=== PATIENT | female | born 1975 | race Caucasian/White ===

== ENCOUNTER 2021-05-28 00:41 | Emergency (ER) | payer OTHER ==
[~2021-05-28] VITALS: Ht 172.7 cm; Wt 65.8 kg
--- NOTE | ~2021-05-28 | EMS ---
[address] [address] EMS Patient Care Report Name: MANSI FAJARDO Room #: DEP IZAIAH Garcia#: [id number] Admission: 05/28/21 Attend Phys: Discharge: 05/28/21 Date of : 77 Report #: [id number] THIS REPORT FOR: //name// Report Transmitted: 05/28/2021 07:33 EMS Care Summary [facility] MED-ACT Incident [id number] @ 05/28/2021 00:02 Incident Location [address] [place] [address] Patient MANSI FAJARDO Female, 45 Years 1975 Patient Address [address] [place] [address] Patient History Asthma,Substance Abuse, Patient Allergies No known allergies, Patient Medications None Reported, Chief Complaint unresposive Disposition Transported No Lights/[place] Dispatch Reason Overdose/Poisoning/Ingestion Transported To [facility] Narrative dispatch: medic [id number] dispatched to a private residence for a report of a pt who had suffered an overdose. medic [id number] immediately responded to the scene without delay. [address] [address] EMS Patient Care Report Name: MANSI FAJARDO HANNAH Room #: DEP DimaDinesh#: [id number] Admission: 05/28/21 Attend Phys: Discharge: 05/28/21 Date of : 77 Report #: [id number] chief complaint: upon arrival to the scene ems enters the residence to find a 45 y/o female pt supine on the floor in the front room of the residence. pt unresponsive with shallow, labored respiration. pt's ex-boyfriend states he believed pt overdosed on heroin. responders from [facility] report finding the pt in an upstairs bathroom and carrying her to the front room. history of present illness: ex-boyfriend states pt has history of heroin abuse. ex-boyfriend states pt had been upstairs in a restroom when he heard a loud "thud." ex-boyfriend states that after approximately 20 minutes he went to check on pt and found her in the above stated condition. at that time ex-boyfriend summoned ems. assessment: als assessment performed, findings noted within report. pertinent findings include pt to unresponsive with shallow, ineffective respiration. ems further notes constricted pupils and cyanotic skin. rendered treatment: assessment, vital signs, supplemental oxygen via BVM, 2mg intranasal naloxone, ekg, blood glucose, vascular access, transport. after administration of naloxone and supplemental oxygen ems noted improvement in pt work of respiration and mental status. transport: pt requests transport to closest ER, [facility]. pt lifted from floor and placed on stretcher. stretcher transferred to ambulance, lifted, and secured. pt continuously monitored through out transport for changes in condition. upon arrival to the receiving facility pt transferred to er bed using a draw sheet. verbal report given to attending staff and transfer of care complete. Initial Vitals @00:27P: 107,SpO2: 99, @00:14P: 90,SpO2: 100, @00:25P: 91,SpO2: 99, @00:13P: 83,R: 4,BP: 179/91,GCS: 8,Temp: 96.9F,Glucose: 241,SpO2: 99,Revised Trauma: 7, @00:29P: 123,R: 20,BP: 118/78,Pain: 0/10,GCS: 15,SpO2: 98,Revised Trauma: 12,VT Suspected: false @00:36P: 108,R: 16,BP: 131/52,GCS: 15,SpO2: 100,Revised Trauma: 12,VT Suspected: false Impression Overdose - Heroin Procedures @00:10 ALS Assessment Response: UnchangedSucceeded @00:13 Naloxone - 2 Milligrams (mg) - Intranasal Response: Improved [facility] [address] [place] [address] EMS Patient Care Report Name: SCOTTYMANSI HANNAH Room #: DEP IZAIAH Garcia#: [id number] Admission: 05/28/21 Attend Phys: Discharge: 05/28/21 Date of : 77 Report #: [id number] @00:18 IV Therapy - Saline Lock 10cc (20 ga) Site: Hand-Left Response: UnchangedSucceeded @00:11 Oxygen FlowRate: 15 Device: Bag Valve Mask (BVM) Response: UnchangedSucceeded Timeline 00:01,Call Received 00:01,Psap Call 00:02,Dispatched 00:03,En Route 00:09,On Scene 00:10,At Patient 00:10,ALS Assessment,Response: UnchangedSucceeded, 00:11,Oxygen FlowRate: 15 Device: Bag Valve Mask (BVM) Response: UnchangedSucceeded, 00:13,Naloxone - 2 Milligrams (mg) - Intranasal,Response: Improved 00:13,BP: 179/91 M,PULSE: 83,RR: 4 R,SPO2: 99 Ox,ETCO2: ,B,PAIN: ,GCS: 8, 00:14,BP: / M,PULSE: 90,RR: R,SPO2: 100 Ox,ETCO2: ,BG: ,PAIN: ,GCS: , 00:18,IV Therapy - Saline Lock 10cc 20 ga Site: Hand-Left,Response: UnchangedSucceeded, 00:25,BP: / M,PULSE: 91,RR: R,SPO2: 99 Ox,ETCO2: ,BG: ,PAIN: ,GCS: , 00:27,BP: / M,PULSE: 107,RR: R,SPO2: 99 Ox,ETCO2: ,BG: ,PAIN: ,GCS: , 00:29,Depart Scene 00:29,BP: 118/78 M,PULSE: 123,RR: 20 R,SPO2: 98 Ox,ETCO2: ,BG: ,PAIN: 0,GCS: 15, 00:36,BP: 131/52 M,PULSE: 108,RR: 16 R,SPO2: 100 Ox,ETCO2: ,BG: ,PAIN: ,GCS: 15, 00:40,At Destination 01:00,Call Closed Disclaimer v1.1 Copyright 2020 [employer] This EMS Care Summary contains data elements from the applicable legal record (which may be displayed differently). It is designed to provide pertinent information for the following purposes: continuity of care, clinical quality, and state data reporting. The complete legal record is available to ED staff and administrators of the receiving hospital in [employer] Patient Tracker. All data is provided "as is."
[~2021-05-28 00:41] MED LIST: FLEXERIL PO; IBUPROFEN 600600 M1 PO; PROVENTIL HFA6.7 G1 INH; XANAX XR1 MG PO
[2021-05-28 03:52] VITALS: BP 134/82
== END 2021-05-28 03:53 | disposition home or self-care (01) ==
LOC: ER 00:41
DX: T40.1X1A Poisoning by heroin, accidental (unintentional), initial encounter (principal); Z88.5 Allergy status to narcotic agent; Y92.89 Other specified places as the place of occurrence of the external cause